=== PATIENT | female | born 1990 | race Caucasian/White ===

== ENCOUNTER 2022-07-04 23:04 | Emergency (ER) | payer BC ==
[~2022-07-04] VITALS: Ht 160 cm; Wt 97.1 kg
[2022-07-04] MEDS ORDERED: PRENTAB9 PO (23:13)
[2022-07-04] MEDS ORDERED: FLON1SPR NARES (23:13)
[2022-07-04] MEDS ORDERED: LEXA1TAB PO (23:13)
[2022-07-04] MEDS ORDERED: ALBU8.5H INH (23:13)
[2022-07-04] MEDS ORDERED: CLON0.5T17 PO (23:13)
[2022-07-04] MEDS ORDERED: IBUP1TAB5 PO (23:13)
[2022-07-05 06:11] VITALS: BP 139/77
== END 2022-07-05 06:12 | disposition home or self-care (01) ==
LOC: M ED 23:04
DX: U07.1 COVID-19 (principal); F41.0 Panic disorder [episodic paroxysmal anxiety]; Z79.51 Long term (current) use of inhaled steroids; Z79.899 Other long term (current) drug therapy

== ENCOUNTER 2023-05-14 01:47 | Emergency (ER) | payer BC ==
[~2023-05-14] VITALS: Ht 160 cm; Wt 96.5 kg
[~2023-05-14 01:47] MED LIST: ALBU8.5H INH; CLON0.5T17 PO; FLON1SPR NARES; IBUP1TAB5 PO; LEXA1TAB PO; PRENTAB9 PO
[2023-05-14] MEDS ORDERED: FAMO40TA3 (02:02)
[2023-05-14] MEDS ORDERED: ADVI200C8 PO (02:02)
[2023-05-14] MEDS ORDERED: ERGO500029 (02:02)
[2023-05-14] MEDS ORDERED: ACETAMINOPHEN 1000MG 100ML IV BAG IV ONE (05:40)
[2023-05-14] MEDS ORDERED: KETOROLAC 30 MG/ML 1ML VIAL IV ONE (05:40)
[2023-05-14] MEDS ORDERED: METHOCARBAMOL 1,000 MG/10 ML VIAL IV ONE (05:40)
[2023-05-14] MEDS ORDERED: NAPR-837 PO (06:37)
[2023-05-14] MEDS ORDERED: METH-1165 PO (06:37)
[2023-05-14 06:43] VITALS: BP 125/69; TEMP 98.1; O2SAT 100
== END 2023-05-14 07:27 | disposition home or self-care (01) ==
LOC: M ED 01:47
DX: M54.9 Dorsalgia, unspecified (principal); F41.1 Generalized anxiety disorder; Z79.899 Other long term (current) drug therapy
CPT/HCPCS: 96374; 96375; 99284; J0131; J1885; J2800